=== PATIENT | female | born 1990 | race Caucasian/White ===

== ENCOUNTER 2020-08-12 07:40 | Outpatient (REF) | payer OTHER, SELFPAY | END 2020-08-12 07:41 | disposition home or self-care (01) | LOC: HO.LAB 07:40 | PROVIDERS: Visit Provider Internal Medicine | DX: Z20.828 Contact with and (suspected) exposure to other viral communicable diseases (principal) | CPT/HCPCS: C9803; U0003 ==

== ENCOUNTER 2020-08-20 07:30 | Outpatient (REF) | payer OTHER, SELFPAY | END 2020-08-20 07:31 | disposition home or self-care (01) | LOC: HO.LAB 07:30 | PROVIDERS: Visit Provider Internal Medicine | DX: Z20.828 Contact with and (suspected) exposure to other viral communicable diseases (principal) | CPT/HCPCS: C9803; U0003 ==

== ENCOUNTER 2020-08-26 10:31 | Outpatient (REF) | payer OTHER, SELFPAY | END 2020-08-26 10:32 | disposition home or self-care (01) | LOC: HO.LAB 10:31 | PROVIDERS: Visit Provider Internal Medicine | DX: Z20.828 Contact with and (suspected) exposure to other viral communicable diseases (principal) | CPT/HCPCS: C9803; U0003 ==

== ENCOUNTER 2021-06-08 08:45 | Outpatient (REF) | payer OTHER, SELFPAY ==
[2021-06-08 09:24] LABS: COVID-19 Test Negative (Negative)
== END 2021-06-08 08:46 | disposition home or self-care (01) ==
LOC: HO.LAB 08:45
PROVIDERS: Visit Provider Internal Medicine
DX: Z20.822 Contact with and (suspected) exposure to COVID-19 (principal)
CPT/HCPCS: 36415; 87635; C9803

== ENCOUNTER 2021-09-07 16:06 | Outpatient (REF) | payer OTHER, SELFPAY ==
[2021-09-07 16:44] LABS: COVID-19 Test Negative (Negative)
== END 2021-09-07 16:07 | disposition home or self-care (01) ==
LOC: HO.LNP 16:06
PROVIDERS: Visit Provider Internal Medicine
DX: Z20.822 Contact with and (suspected) exposure to COVID-19 (principal)
CPT/HCPCS: 87635